=== PATIENT | male | born 1975 | race Caucasian/White ===

== ENCOUNTER 2016-11-24 03:09 | Emergency (ER) | payer BC, MEDICAID ==
[2016-11-24] MEDS ORDERED: ONDANSETRON HCL 4 MG/2 ML VIAL IV ONE (03:24)
[2016-11-24] MEDS ORDERED: NS 1,000 ML IV ONE (03:24)
--- NOTE | 2016-11-24 03:26 | EDPRACDOC ---
- General Information Chief Complaint: Flu-Like Symptoms Stated Complaint: FLU LIKE SYMPTOMS Time Seen by Provider: 11/24/16 03:23 Home Medications: Home Medications Benzonatate [Tessalon Perle] 100 mg PO TID #20 capsule 04/25/16 Gabapentin [Neurontin] 300 mg PO TID 04/25/16 Ciprofloxacin HCl [Cipro] 500 mg PO BID #20 tab 11/24/16 Ondansetron HCl [Zofran] 4 mg PO Q6H PRN #15 tab 11/24/16 Oxycodone HCl/Acetaminophen [Percocet 5-325 mg Tablet] 1 each PO Q4 #20 tablet 11/24/16 Allergies/Adverse Reactions: Allergies Allergy/AdvReac Type Severity Reaction Status Date / Time No Known Allergies Allergy Verified 11/24/16 03:37 - History of Present Illness HPI: PATIENT PRESENTS WITH NAUSEA AND VOMITING WITH DIARRHEA SINCE THIA AM. NO FEVER. NO SICK CONTACTS. COMPLAINS OF NONPRODUCTIVE COUGH. Symptoms Occured: Reports: Spontaneous Duration: Reports: Since Onset Emesis: Reports: Bilious Pain Severity: None Associated Signs and Symptoms: Reports: Nausea, Vomiting, Diarrhea, Anorexia Oral Intake: Normal Urinary Output: Normal ED Past Medical History - History Reviewed Yes Nurses notes reviewed and agree except as marked Travel Outside of [place] in the Last 3 Months?: No - Patient Medical History Neurological History: Reports: Cerebrovascular Accident (2010). Denies: Seizures Cardiac History: Reports: Hypertension, Heart Attack (2010). Denies: Atrial Fibrillation, Syncope Systemic History: Reports: Diabetes (diet controlled) - Social Medical History Smoking Status: Never smoker ETOH: None Substance Abuse: None Lives With: Family Lives In: Home EDM Review of Systems - Review of Systems ROS Negative Except as Marked: Yes All systems reviewed and were negative except as marked Constitutional: Fatigue. negative: Chills, Fever, Loss of Appetite, Weakness Eyes: No Symptoms Reported. negative: Redness, Blurred Vision, Double Vision, Discharge, Pain, Light Sensitive, Photophobia Ears: No Symptoms Reported. negative: Pain, Hearing Loss, Drainage, Ear Pulling Throat: No Symptoms Reported. negative: Pain, Swelling Nose: No Symptoms Reported. negative: Congestion, Bleeding, Discharge, Injection, Swelling, Deformity, Ecchymosis, Tender, Abrasion, Laceration Mouth: No Symptoms Reported. negative: Pain, Drooling Respiratory: Cough. negative: Barky Cough, Brassy Cough, Hemoptysis, Shortness of Breath, Wheezing Cardiovascular: No Symptoms Reported. negative: Chest Pain, Palpitations, Syncope, Edema, Orthopnea, PND, Skin Mottling, Cyanosis Gastrointestinal: Diarrhea, Nausea, Vomiting. negative: Constipation, Formula Intolerance, Melena, Pain Genitourinary: No Symptoms Reported. negative: Dysuria, Hematuria, Frequency, Discharge, Bleeding, Testicular Pain, Neurological: No Symptoms Reported. negative: Headache, Dizziness, Seizure, Numbness, Weakness, Speech Difficulty, Gait Difficulty Musculoskeletal: No Symptoms Reported. negative: Neck, Chestwall, Ribs, Back, Shoulder, Arm, Elbow, Forearm, Wrist, Hand, Pelvis, Hip, Femur, Knee, Leg, Ankle , Foot Integumentary: No Symptoms Reported. negative: Itching, Rash, Bruising, Wound Allergic/Immunologic: No Symptoms Reported. negative: Hives, Itching Hematologic: No Symptoms Reported. negative: Lymphadenopathy, Easy Bruising, Easy Bleeding Endocrine: No Symptoms Reported. negative: Weight Gain, Weight Loss Psychiatric: No Symptoms Reported. negative: Anxiety, Depression, Hallucinations, Insomnia, Suicidal - Physical Exam Constitutional: Alert (Awake), No apparent distress Oriented to: Time, Person, Place Last recorded Vital Signs: Oxygen Pulse Oxygen Saturation O2 Device Oxygen Flow Rate Fraction of Inspired Oxygen ( FIO2) - HEENT Head: Normal ( normocephalic) Eye Exam: Normal (PERRL, EOMI, Sclera white) Oropharynx: Normal (Pharynx:Moist without exudate,Gums-no swelling) Tympanic Membrane: Normal ENT EAC: Normal TMJ: Normal Nose: No Symptoms Reported (septum midline) Neck: Normal (FROM, trachea at midline) - Respiratory/Cardiovascular Respiratory: Normal - CTA (BBS clear to auscultation without adventitious sounds ) Cardiovascular: Normal (RRR without murmur, gallop or rub) - GI Auscultation: Normal (NABS) Palpation: Normal (Soft,No rebound or guarding, non distended) Tenderness: Non tender Szymanski's Sign: Negative - Musculoskeletal Back: Normal (Non-Tender) Extremities: Normal (Normal tone, Pulses 2+ No cyanosis or edema, FROM) - Integumentary Skin: Normal, Warm, Dry Lymphatics: Normal (no adenopathy) - Neurologic Memory Impaired: Normal Motor Function: Normal (Normal tone, Pulses 2+ No cyanosis or edema, FROM) Cranial Nerve: Normal (CN II-X11 intact sensation, strength 5/5) Cerebellar: Normal Mood Description: Normal Perception: Normal - Results 11/24/16 03:45 11/24/16 03:45 Decision Time to Discharge: 04:48 - Departure Yes I personally saw and evaluated the patient. Disposition: Home Condition: Good Final Diagnosis: Nausea & vomiting Qualifiers: Vomiting type: unspecified Vomiting Intractability: non-intractable Qualified Code(s): R11.2 - Nausea with vomiting, unspecified Diarrhea Qualifiers: Diarrhea type: unspecified type Qualified Code(s): R19.7 - Diarrhea, unspecified URI (upper respiratory infection) Qualifiers: URI type: unspecified URI Qualified Code(s): J06.9 - Acute upper respiratory infection, unspecified Instructions: Acute Nausea and Vomiting (ED), Acute Diarrhea (ED) Education/Counseling Given To: Patient Education/Counseling Given Regarding: Diagnosis, Treatment, Prognosis, Follow Up Prescriptions: Ciprofloxacin HCl [Cipro] 500 mg PO BID #20 tab Ondansetron HCl [Zofran] 4 mg PO Q6H PRN #15 tab PRN Reason: Nausea/Vomiting Oxycodone HCl/Acetaminophen [Percocet 5-325 mg Tablet] 1 each PO Q4 #20 tablet
[2016-11-24 03:37] VITALS: BMI 29.0
[2016-11-24 04:32] LABS: AUTOMATED BASOPHIL 0.3 % (0-2); AUTOMATED EOSINOPHIL 0.1 % (0-5); AUTOMATED LYMPH 7.3 % (17-44); AUTOMATED MONOCYTE 12.6 % (3-10); AUTOMATED NEUTROPHIL 79.7 % (45-76); MPV 8.9 fL (7.4-10.4)
--- NOTE | 2016-11-24 04:39 | DIRPT ---
CLINICAL DATA: Acute onset of fever, chills, vomiting, diarrhea and body aches. Initial encounter. EXAM: DG ABDOMEN ACUTE W/ 1V CHEST COMPARISON: Chest and abdominal radiographs performed 02/07/2013 FINDINGS: The lungs are well-aerated. Minimal bilateral atelectasis is noted. There is no evidence of pleural effusion or pneumothorax. The cardiomediastinal silhouette is within normal limits. The visualized bowel gas pattern is unremarkable. Scattered stool and air are seen within the colon; there is no evidence of small bowel dilatation to suggest obstruction. No free intra-abdominal air is identified on the provided upright view. No acute osseous abnormalities are seen; the sacroiliac joints are unremarkable in appearance. IMPRESSION: 1. Unremarkable bowel gas pattern; no free intra-abdominal air seen. 2. Minimal bilateral atelectasis noted. Lungs otherwise clear. Electronically Signed By: Herberth Rodriguez M.D. On: 11/24/2016 04:37
[2016-11-24 04:42] LABS: BLOOD UREA NITROGEN 18 MG/DL (9-20); CALCIUM 8.8 MG/DL (8.4-10.2); CALCULATED OSMOLALITY 263 MOs/Kg (270-290); CHLORIDE 95 mEq/L (98-107); GLUCOSE 210 MG/DL (70-99); SODIUM LEVEL 132 mEq/L (137-146)
[2016-11-24 05:12] VITALS: BP 142/85; PULSE 96
[2016-11-24 05:26] VITALS: TEMP 100
== END 2016-11-24 05:24 | disposition home or self-care (01) ==
LOC: ED 03:09
DX: J06.9 Acute upper respiratory infection, unspecified (principal); R11.2 Nausea with vomiting, unspecified; R19.7 Diarrhea, unspecified
CPT/HCPCS: 36415; 74022; 80053; 85025; 87804; 96361; 96374; 99283; J2405